=== PATIENT | female | born 1990 | race Caucasian/White ===

== ENCOUNTER 2024-03-11 16:49 | Inpatient (IN) | payer OTHER ==
[2024-03-11 17:19] VITALS: BMI 36.2
[2024-03-11] MEDS ORDERED: fentaNYL 50 mcg/mL 1 mL Vial SLOW IVP PRN (17:36)
[2024-03-11] MEDS ORDERED: Lidocaine 1% (PF) 30 ML VIAL SC PRN (17:36)
[2024-03-11] MEDS ORDERED: Carboprost 250 MCG/ML AMP IM PRN (17:36)
[2024-03-11] MEDS ORDERED: Acetaminophen 500 MG TAB PO PRN (17:36)
[2024-03-11] MEDS ORDERED: Methylergonovine 0.2 MG/ML VIAL IM PRN ×2 (17:36→22:21)
[2024-03-11] MEDS ORDERED: hydrALAZINE 20 MG/ML VIAL SLOW IVP PRN ×2 (17:36→22:21)
[2024-03-11] MEDS ORDERED: Diphenoxylate HCl/Atropine Tablet PO PRN (17:36)
[2024-03-11] MEDS ORDERED: Ondansetron PF 4 MG/2 ML Vial IVP PRN ×2 (17:36→22:21)
[2024-03-11] MEDS ORDERED: Misoprostol 200 MCG TAB PR PRN (17:36)
[2024-03-11] MEDS ORDERED: Ibuprofen 800 MG TAB PO PRN (17:36)
[2024-03-11] MEDS ORDERED: Promethazine HCl 25 MG/ML VIAL IM PRN ×2 (17:36→22:21)
[2024-03-11] MEDS ORDERED: HYDROcodone/Acetaminophen 5/325 mg Tablet PO PRN ×3 (17:36→22:21)
[2024-03-11] MEDS ORDERED: Lactated Ringer's 1,000 ML IV SCH (17:45)
[2024-03-11] MEDS ORDERED: Oxytocin 30 units/NS 500 ML 500 ML IV SCH ×3 (17:45→22:45)
[2024-03-11 18:28] LABS: Hematocrit 36.2 % (34.9-44.5); Hemoglobin 12.8 g/dL (12.0-15.5); Mean Corpuscular HGB CONC 35.4 g/dL (32.0-36.0); Mean Corpuscular Hemoglobin 30.3 pg (27.0-33.0); Mean Corpuscular Volume 85.6 fL (81.6-98.3); Mean Platelet Volume 11.3 fL (7.4-10.4); Platelet Count 391 10x3/uL (150-450); RBC Distribution Width 12.7 % (11.5-14.5); Red Blood Cell (RBC) Count 4.23 10x6/uL (3.90-5.03); White Blood Cell (WBC) Count 23.2 10x3/uL (3.5-10.5)
[2024-03-11 20:34] LABS: HBsAg Index 0.17 S/CO (0-0.99); Hep B Surf Ag - L&D Non-Reactive S/CO (NonReactive)
[2024-03-11 20:35] LABS: Syphilis Antibody Nonreactive (Nonreactive); Syphilis Antibody Index 0.04 S/CO (<1.00 Non-Reactive)
[2024-03-11] MEDS ORDERED: Milk Of Magnesia 30 ML UDCUP PO PRN (22:21)
[2024-03-11] MEDS ORDERED: Bisacodyl 10 MG SUPP PR PRN (22:21)
[2024-03-11] MEDS ORDERED: Lanolin Ointment 7 GM TUBE TOP PRN (22:21)
[2024-03-11] MEDS ORDERED: Preparation H Ointment 28 GM TUBE PR PRN (22:21)
[2024-03-11] MEDS ORDERED: Misoprostol 200 MCG TAB VAG PRN (22:21)
[2024-03-11] MEDS ORDERED: Measles/Mumps/Rubella 10 MCG/0.5 ML VIAL SC ONE (22:21)
[2024-03-11] MEDS ORDERED: Varicella virus, LIVE 0.5 ML VIAL SC ONE (22:21)
[2024-03-11] MEDS ORDERED: Boostrix 0.5 ML (Tdap) VIAL (>/=7 yrs of age) IM ONE (22:21)
[2024-03-11] MEDS ORDERED: Zolpidem Tartrate 5 MG TAB PO PRN (22:21)
[2024-03-11] MEDS ORDERED: diphenhydrAMINE 25 MG CAP PO PRN (22:21)
[2024-03-11] MEDS: Ibuprofen 800 MG TAB PO SCH (22:50)
[2024-03-11] MEDS: Benzocaine-Menthol 82.5 ML CAN TOP PRN (22:50)
[2024-03-11] MEDS: Docusate 100 MG CAP PO SCH (22:51)
[2024-03-12] MEDS: Docusate 100 MG CAP PO SCH (05:07)
[2024-03-12] MEDS: Ferrous Sulfate 325 MG TAB PO SCH (07:34)
[2024-03-12] MEDS: Prenatal Vitamin 1 TAB PO SCH (08:26)
[2024-03-12 20:20] VITALS: BP 115/64; TEMP 97.7
== END 2024-03-12 20:05 | disposition home or self-care (01) | DRG 807 ==
LOC: CSHLD/OP 16:49 → CSHLD 17:36 → CSHANTE 21:40
PROVIDERS: ADMIT Student in an Organized Health Care Education/Training Program; ATTEND Student in an Organized Health Care Education/Training Program
PROC: 10E0XZZ Delivery of Products of Conception, External Approach (ICD-10-PCS; principal; 2024-03-11)
PROC: 0KQM0ZZ Repair Perineum Muscle, Open Approach (ICD-10-PCS; 2024-03-11)
DX: O70.1 Second degree perineal laceration during delivery (principal); Z37.0 Single live birth; Z3A.38 38 weeks gestation of pregnancy; Z88.1 Allergy status to other antibiotic agents
CPT/HCPCS: 85027; 86780; 86850; 86900; 86901; 87340; 99285; J2590